=== PATIENT | female | born 2000 | race Caucasian/White ===

== ENCOUNTER → 2021-10-16 11:16 | Outpatient (CLI) | payer OTHER, SELFPAY ==
--- NOTE | ~2021-10-16 | US_ITS ---
EXAMINATION: US thyroid DATE: 10/16/2021 11:36 INDICATION: Disorder of thyroid, unspecified. TECHNIQUE: Multiple ultrasound images of the thyroid were obtained. COMPARISON: None. FINDINGS: The right thyroid lobe measures 6.0 x 1.9 x 2.0 cm. The left thyroid lobe measures 5.7 x 2.1 x 2.2 c m. The thyroid demonstrates diffusely heterogeneous hypoechogenicity. Vascularity is normal. No disc rete nodule. IMPRESSION: 1. Heterogeneous thyroid, likely chronic lymphocytic (Naomi) thyroiditis. Reviewed, dictated and finalized at location A.
== END ==
PROVIDERS: PCP Family Medicine; Visit Provider Nurse Practitioner
DX: E07.9 Disorder of thyroid, unspecified (principal)
CPT/HCPCS: 76536

== ENCOUNTER 2022-05-16 00:14 | Day surgery (SDC) | payer OTHER, SELFPAY ==
[2022-05-13 14:06] VITALS: BMI 29.2
--- NOTE | 2022-05-13 14:10 | PC.NURSE ---
Report to the Outpatient Waiting Room, entrance under the green pavilion located off [facility], at time 1300 on date 05/16/22. Planned Procedure Time: 1500. Time changes happen often and if your time is changed the preop area will call you the afternoon before. - You and your visitor will be asked to self-screen and do not enter if you have any COVID symptoms. - Only one visitor is requested with a max of two and NO children visitors are allowed at this time. - The patient visitor may be requested to leave or wait in car when not with patient due to distancing restrictions. - A mask is optional within the hospital at this time. Patients may have clear liquids (water, carbonated beverages, clear teas, apple juice) until 3 hours prior to surgery with a maximum of 20 ounces. - No food from midnight until time of surgery Take the following medications with a SIP of water the morning of surgery: N/A DO NOT STOP ANY OF YOUR OTHER PRESCRIPTION MEDICATIONS PRIOR TO SURGERY EXCEPT THE FOLLOWING Medications to discontinue per physician: N/A Date to take last dose: N/A Please no make-up, nail bahraini, hairspray, perfume, deodorant, or body powder the day of surgery. No jewelry (including any body piercings) or valuables the day of surgery, leave them at home. Please take a shower or bath the night before, or the morning of, surgery with an antibacterial soap. Wear comfortable, loose fitting clothing. - Jewelry must be removed prior to entering the operating room. Rings and piercings that are not removed may be cut off. - The hospital will not accept responsibility for valuables. - Please leave all valuables, including medications, at home the day of surgery. If you are going home after surgery, a licensed driver guard must drive you home. - NO public transportation without another adult if you receive anesthesia. - We recommend that an adult stay with you for 24 hours following discharge. - We also recommend that you do not drive, make important decision, drink alcoholic beverages, or take any drugs that were not prescribed by your health care provider for at least 24 hours after your discharge time. Follow any additional instructions given to you from your surgeon. If you or anyone in your household have experienced Covid symptoms in the past week, please notify your surgeon or the nurse liaison at the phone number below for possible testing. Telephone instructions given to PT - NUNU PRAKASH and asked if any additional questions and then verbalized understanding. Patient advised to call surgeon office or pre surgery nurse liaison [phone] if any additional questions.
[2022-05-16] VITALS (7 sets, daily range): BP systolic 80–134; BP diastolic 39–74; PULSE 76–86; RESP 16; TEMP 37; O2SAT 88–100
--- NOTE | 2022-05-16 08:10 | P.HP_ITS ---
History of Present Illness History of Present Illness Consent: Risks, benefits, and alternatives have been discussed and questions answered. Patient agrees to proceed with procedure. Chief complaint: Bartholin Gland Cyst Narrative: Cheryl Jovel is a 21 year old female FOR[facility]LY [facility] Past Medical History Medical History (Updated 05/16/22 @ 11:00 by Zhang Rangel MD) Bartholin gland cyst Morbid obesity PCOS (polycystic ovarian syndrome) Surgical History Surgical History History of surgery on arm age 10 Social History Social History Smoking status: Never smoker Alcohol intake: never Substance use: never Substance use type: does not use Living arrangements: with family Spiritual care concerns: No Meds Home Medications and Allergies Home Medications Medication Instructions Recorded Confirmed Type metformin 500 mg tablet,extended 500 mg PO HS 05/13/22 05/16/22 History release 24 hr spironolactone 50 mg tablet 100 mg PO HS 05/13/22 05/16/22 History Allergies Allergy/AdvReac Type Severity Reaction Status Date / Time No Known Allergies Allergy Verified 05/16/22 11:15 Assessment and Plan Assessment and plan (1) Bartholin's gland abscess: Code(s): N75.1 - Abscess of Bartholin's gland Status: Acute Assessment and Plan: Proceed with marsupiliztion
--- NOTE | 2022-05-16 08:10 | WPDHPUPDATE1 ---
History and Physical Update Update Date/Time: 05/16/22 08:10 History and Physical has been reviewed, including an updated exam of the patient. There are NO changes in the patient's condition. Risks, benefits, and alternatives have been discussed and questions answered. Patient agrees to proceed with procedure.
--- NOTE | 2022-05-16 10:59 | P.PNAN_ITS ---
Anes - Initial Pre Proc Eval Procedure: Operation Date: 05/16/22 15:00 Proposed Procedures p Marsupialization of Bartholin's Gland Cyst - Jeanette Mora MD Date/Time: 05/16/22 10:59 Surgeon: Jeanette Mora MD Pre Op Diagnosis: Bartholin Gland Cyst Patient Data Age: 21 Gender: F Height: 1.6 m Weight: 78.8 kg Allergies Allergy/AdvReac Type Severity Reaction Status Date / Time No Known Allergies Allergy Verified 05/13/22 14:05 Home Medications Medication Instructions Recorded Confirmed Type metformin 500 mg tablet,extended 500 mg PO HS 05/13/22 05/13/22 History release 24 hr spironolactone 50 mg tablet 100 mg PO HS 05/13/22 05/13/22 History Patient hx anesthesia problems: none Family hx anesthesia problems: none Results Review: All pre-operative results and documents have been reviewed as part of the pre- operative evaluation. [facility] Past Medical History Medical History (Updated 05/16/22 @ 11:00 by Zhang Rangel MD) Bartholin gland cyst Morbid obesity PCOS (polycystic ovarian syndrome) Surgical History Surgical History History of surgery on arm age 10 Social History Social History Smoking status: Never smoker Alcohol intake: never Substance use: never Substance use type: does not use Living arrangements: with family Spiritual care concerns: No Anes - Eval Final PreProcedure Day of Procedure 05/16/22 10:59 Patient weight: obese Heart: regular rate and rhythm Lungs: clear to auscultation Airway: Mallampati scale class II Neurological: alert and oriented Last oral intake: >/= 8 hours ASA classification: II Emergent: no Anesthetic plan: proceed Anesthesia type and monitoring: general GIVS and standard monitoring Results Review: All pre-operative results and documents have been reviewed as part of the pre- operative evaluation. Informed Consent: The patient's anesthetic plan and its attendant risks and benefits were discussed with the patient/family/POA. Questions were solicited and answers provided to the satisfaction of the patient/family/POA.
[2022-05-16] MEDS: LACTATED RINGERS 1,000 ML 30 ML IV CONT (11:27)
[2022-05-16] MEDS: LIDO 1%/EPINEPHRINE 1:100,000 20 ML VIAL 10 ML INFILTRATE (11:58)
--- NOTE | 2022-05-16 12:06 | P.OP_ITS ---
Procedure Note - Detailed Date of Procedure 05/16/22 Pre-op Diagnosis right Bartholin Gland abscess Post-op Diagnosis Same Procedure Performed marsupialization of right Bartholin abscess Surgeon Jeanette Mora MD Anesthesia MAC and Local Findings right Bartholin Abscess had previously drained on the surface; the empty cyst extends approximately 8cm up the right labia and 3cm medially Description of Procedure The inner right labia majora was injected with 1% lidocaine with epinephrine. A 1 1/2 cm incision was made with a scalpel. A small Peon was used to explore the cyst cavity. There is induration in the outer tissues but the cyst is com pletely drained with no loculations. The cyst wall was grasped through the incision at 12,3,6 and 9 o'clock and sutured open with 0 Vicryl in an interrupted fashion. A Peon easily fits into the opening and into the cyst cavity once the process of complete. Remainder of the 1% lidocaine with epinephrine was injected in each of the sidewalls. Good hemostasis is noted. Estimated Blood Loss 5 Drains No Packing No Pathology None sent Complications No immediate complications Condition Stable Disposition PACU
== END 2022-05-16 13:51 | disposition home or self-care (01) ==
PROVIDERS: PCP Family Medicine; Visit Provider Obstetrics & Gynecology Gynecology
PROC: (CPT 56440; principal; 2022-05-16 15:00)
DX: N75.1 Abscess of Bartholin's gland (principal); E28.2 Polycystic ovarian syndrome; Z79.84 Long term (current) use of oral hypoglycemic drugs; E66.9 Obesity, unspecified; Z68.30 Body mass index [BMI] 30.0-30.9, adult
CPT/HCPCS: 56440; J0131; J2250; J2704; J3010; J7120

== ENCOUNTER 2024-01-15 15:48 | Outpatient (CLI) | payer OTHER, SELFPAY ==
--- NOTE | ~2024-01-15 | US_ITS ---
EXAMINATION: US thyroid DATE: 01/15/2024 16:02 INDICATION: Thyromegaly. Dysphagia. TECHNIQUE: Multiple ultrasound images of the thyroid were obtained. COMPARISON: Thyroid ultrasound 10/16/2021 FINDINGS: The right thyroid lobe measures 6.1 x 2.4 x 2.3 cm. The left thyroid lobe measures 5.9 x 2.0 x 2.5 c m. There is diffusely heterogeneous and hypoechoic. No discrete nodule. Vascularity is normal. IMPRESSION: 1. Heterogeneous thyroid, likely chronic lymphocytic (Naomi) thyroiditis. Reviewed, dictated and finalized at location A. F [employer]
== END 2024-01-15 15:49 | disposition home or self-care (01) ==
LOC: MICIMG 15:49
PROVIDERS: PCP Internal Medicine Endocrinology, Diabetes & Metabolism; Visit Provider Internal Medicine Endocrinology, Diabetes & Metabolism
DX: E07.89 Other specified disorders of thyroid (principal); R13.0 Aphagia; E01.0 Iodine-deficiency related diffuse (endemic) goiter
CPT/HCPCS: 76536